=== PATIENT | female | born 1990 | race Caucasian/White ===

== ENCOUNTER 2024-06-14 07:54 | Day surgery (SDC) | payer BC, MEDICAID, SELFPAY ==
[2024-06-14] VITALS (11 sets, daily range): BP systolic 105–122; BP diastolic 61–90; PULSE 61–82; RESP 16–18; TEMP 36.1–36.6; O2SAT 94–100; BMI 38.4
--- NOTE | 2024-06-14 06:50 | P.HP_ITS ---
Same Day Surgery H&P Indication for Procedure/HPI DATE OF PROCEDURE: June 14, 2024 CHIEF COMPLAINT/INDICATIONFOR SURGICAL PROCEDURE: intrauterine device with lost strings wants new intrauterine device PREOP DIAGNOSIS: intrauterine device with lost strings; wants new intrauterine device PLANNED PROCEDURE: Operation Date: 06/14/24 09:30 Proposed Procedures p Hysteroscopy 98646, 13003, 99585, Z30.9(Not Applicable) - Gio Charles MD s Removal Of Interuterine Device(Not Applicable) - Gio Charles MD s Placement of Intrauterine Device(Not Applicable) - Gio Charles MD 33 y.o. h/o intrauterine device placement in November 2017 with lost strings wants removal and replacement with new intrauterine device Medications/Allergies* Home Medications ?Medication ?Instructions ?Recorded ?Confirmed ?Type levothyroxine 25 mcg tablet 25 mcg PO DAILY 05/25/24 0 06/13/24 History (Synthroid) Allergies/Adverse Reactions Allergy/AdvReac Type Severity Reaction Status Date / Time Penicillins Allergy ADR-Abdominal Verified 05/25/24 09:25 Pain wheat Allergy ADR-Abdominal Verified 05/25/24 09:25 Pain Pertinent History/Comorbid Conditions* Family History (Updated 05/25/24 @ 09:27 by Adwoa Kwok) Diabetes Grandmother Heart disease Grandmother Thyroid disease Mother Social History Smoking and tobacco/nicotine status: never used tobacco/nicotine Pertinent Exam Findings alert, oriented x 3, clear to auscultation bilaterally and regular rate & rhythm Recommendations Surgery/Procedure today Coding Level of Care Code Acute Code for Chg Fwd Time Spent (min) 20
[2024-06-14 08:19] LABS: OR HCG Qualitative Urine Negative (Negative)
--- NOTE | 2024-06-14 08:46 | W.PM.OPSUD ---
Surgery/Procedure H&P Update DATE OF PROCEDURE: June 14, 2024 DATE H&P PERFORMED: 05/25/24 H&P UPDATE INFORMATION: I have reviewed H&P completed within last 30 days, I have examined patient prior to procedure and No changes to prior documentation PREOP DIAGNOSIS: intrauterine device, lost strings; wants new intrauterine device PLANNED PROCEDURE: Operation Date: 06/14/24 09:30 Proposed Procedures p Hysteroscopy 56478, 04659, 79074, Z30.9(Not Applicable) - Gio Charles MD s Removal Of Interuterine Device(Not Applicable) - Gio Charles MD s Placement of Intrauterine Device(Not Applicable) - Gio Charles MD
--- NOTE | 2024-06-14 08:59 | P.ANESASSM_ITS ---
Pre-Anesthetic Assessment Height/Weight: Height 1.65 m Weight 104.78 kg Temp Pulse Resp BP Pulse Ox O2 Del Method 97.4 F L 79 16 122/80 100 Room Air 06/14/24 08:20 06/14/24 08:20 06/14/24 08:20 06/14/24 08:20 06/14/24 08:20 06/14/24 08:29 Preop Diagnosis: intrauterine device, lost strings; wants new intrauterine device Operation Date: 06/14/24 09:30 Proposed Procedures p Hysteroscopy 00840, 22156, 30210, Z30.9(Not Applicable) - Gio Charles MD s Removal Of Interuterine Device(Not Applicable) - Gio Charles MD s Placement of Intrauterine Device(Not Applicable) - Gio Charles MD Familial anesthetic complications: None Was Beta Cory taken within 24 hours: N/A Was Clonidine taken within 24 hours: N/A Last intake: Intake Last Liquid Date 06/13/24 Last Liquid Time 19:30 Last Solid Date 06/13/24 Last Solid Time 19:30 Social No alcohol and No tobacco Exam alert, oriented x 3, clear to auscultation bilaterally and regular rate & rhythm Airway Mallampati: Class II Dentition: other (missing) Metabolic Morbid Obesity and Thyroid Disease Anesthetic Plan ASA status: 3 Anesthesia: General Risk of > 500 ml blood loss (7ml/kg in children): No Medications/Allergies Home Medications ?Medication ?Instructions ?Recorded ?Confirmed ?Last Taken ?Type levothyroxine 25 mcg tablet 25 mcg PO DAILY 05/25/24 0 06/13/24 06/13/24 History (Synthroid) Allergies Allergy/AdvReac Type Severity Reaction Status Date / Time Penicillins Allergy ADR-Abdominal Verified 05/25/24 09:25 Pain wheat Allergy ADR-Abdominal Verified 05/25/24 09:25 Pain PFSH Anesthesia Family History (Updated 05/25/24 @ 09:27 by Adwoa Kwok) Grandmother Heart disease Diabetes Mother Thyroid disease Social History Smoking and tobacco/nicotine status: never used tobacco/nicotine Female Reproductive History Date of last menstrual period: 04/25/24 Data Anesthesia Cardiac Studies: No Data to Display
[2024-06-14] MEDS: sodium chloride 0.9% 1,000 ML 30 ML IV (09:01)
--- NOTE | 2024-06-14 10:01 | SUR.OPER ---
ANGELITA INSERTION BY YOUSIF LOT#[id number], 03/12
--- NOTE | 2024-06-14 10:15 | PM.OP ---
Operative Report Date of procedure: June 14, 2024 Pre-op diagnosis: mirena intrauterine device with lost strings desires new mirena intrauterine device Post-op diagnosis: same Post-op findings: normal endometrial cavity No polyps / fibroids Minimal endometrial tissue Intrauterine device in endometrial cavity, intact and complete Endometrial cavity intact following procedure Procedure done: hysteroscopy removal of intrauterine device insertion of new mirena intrauterine device Implants: mirena intrauterine device Specimens removed/disposition: old mirena intrauterine device, discarded Surgeon: Gio Charles MD Anesthesia: MAC Estimated blood loss (mL): 0 Complications: none Findings: normal endometrial cavity No polyps / fibroids Minimal endometrial tissue Intrauterine device in endometrial cavity, intact and complete Endometrial cavity intact following procedure Condition: stable Disposition: PACU Brief History: 33 y.o. A1 Has mirena IUD placed in November 2017 Now with lost strings Wants IUD replaced with new mirena IUD Has had two unsuccessful attempts at outside clinic at removal Procedure: Informed consent signed. Patient was taken to the operating room. Anesthesia was induced. Patient was placed in dorsolithotomy position, prepped and draped for hysteroscopy. A bivalve speculum was placed in the vagina. The anterior lip of the cervix was grasped with a sharp-toothed tenaculum. The cervix was serially dilated with Hegar dilators. . A hysteroscope was placed into the endometrial cavity. The endometrial cavity was seen to be normal. There were no polyps or fibroids. There was a minimal amount of endometrial tissue. The intrauterine device was seen in the endometrial cavity. The device was removed using a hysteroscopic grasper. The intrauterine device was seen to be complete and intact and this was discarded. The endometrial cavity was seen to be intact. The hysteroscope was then removed. The mirena intrauterine device was then prepared, placed into the endometrial cavity and deployed. A 3-4 cm string was left at the cervical os. The sharp-toothed tenaculum was removed. There was no bleeding from the endometrial cavity or cervix. The patient was then placed supine and awakened and taken to the PACU. Postop condition: stable EBL: none Sponge and instruments counts were normal x 2 Complications: none
--- NOTE | 2024-06-14 11:35 | ANE.PACU2 ---
Inpatient post-anesthesia follow up: Airway intact: Yes Vital signs: Temperature 97.8 F Pulse Rate 65 Respiratory Rate 16 Blood Pressure 112/82 Pulse Oximetry 99 Oxygen Delivery Me thod Room Air Oxygen Flow Rate 8 Fraction of Inspir ed Oxygen Hydration adequate: Yes Nausea and vomiting: No Pain level: 1 Mental status: Baseline
== END 2024-06-14 11:35 | disposition home or self-care (01) ==
PROVIDERS: Anesthesiology; Visit Provider Obstetrics & Gynecology
PROC: 0UJD8ZZ Inspection of Uterus and Cervix, Via Natural or Artificial Opening Endoscopic (ICD-10-PCS; CPT 58555; principal; 2024-06-14 09:20)
PROC: (CPT 58301; 2024-06-14 09:20)
PROC: (CPT 58300; 2024-06-14 09:20)
DX: Z30.433 Encounter for removal and reinsertion of intrauterine contraceptive device (principal)
CPT/HCPCS: 58562; 58300; 81025; J1100; J1885; J2250; J2405; J2704; J7030